=== PATIENT | female | born 1995 ===

== ENCOUNTER 2019-06-22 11:17 | Inpatient (IN) | payer BC, OTHER ==
[2019-06-22 12:10] VITALS: BMI 31.6
[2019-06-22] MEDS ORDERED: hydrALAZINE 20 MG/ML VIAL SLOW IVP PRN ×2 (12:24→13:56)
--- NOTE | 2019-06-22 12:42 | PDOC.FPROB ---
FMR OB H&P: HPI - History of Present Illness Chief Complaint: elevated BP Indentification: 24 y/o @ 38.1 WGA History of Present Illness: Patient presents from Dr. Nunez's office for elevated BP in 140s/80s in the office. The patient denies H/A, vision changes, SOB, RUQ pain, edema. She denies ctx, LOF, VB, d/c. Endorses movement Primary Care Physician: Dr. Nunez FMR OB H&P: Current - Care : 1 Para: 0 Gestational age: 38.1 FMR OB H&P: History - Past Medical History PMH: Denies - OB History OB History: G1 - Surgical History Sx History: Denies - Social History Social History: Denies tobacco, EtOH, drug use - Family History Family History: Father - HTN FMR OB H&P: Medications - Current Home Medications: Medication Instructions Recorded Confirmed Type Pnv No.103/Folic/Om3s/Fish Oil 1 chw PO DAILY 06/22/19 06/22/19 History [ Gummies] Allergies/Adverse Reactions: Allergies Allergy/AdvReac Type Severity Reaction Status Date / Time No Known Allergies Allergy Verified 06/22/19 12:00 FMR OB H&P: ROS - Review of Systems General: denies: fever/chills, weight/appetite/sleep changes Eyes: denies: vision changes, scotomas ENT: denies: nasal congestion, rhinorrhea Cardiovascular: denies: chest pain, edema Respiratory: denies: cough, shortness of breath Gastrointestinal: denies: abdominal pain, nausea, vomiting Genitourinary (Female): denies: dysuria, vaginal discharge, vaginal bleeding, contractions Musculoskeletal: denies: pain, swelling, arthritis/arthralgias Neurologic: denies: numbness, seizures Integumentary: denies: itching, rash Hematologic/Lymphatic: denies: prolonged or excessive bleeding, enlarged lymph nodes Psychological: denies: depression, anxiety FMR OB H&P: Vital Signs - Maternal Vital signs: Vital Signs - First Documented Temp Pulse Resp BP Pulse Ox 98.3 F 78 16 132/81 97 06/22/19 11:57 06/22/19 11:57 06/22/19 11:57 06/22/19 11:57 06/22/19 11:57 - Heart Tones Baseline: 130 Variability: moderate Acceleration: present Deceleration: absent Category: category 1 [place] contractions every: none FMR OB H&P: Physical Exam - Physical Exam General: NAD, awake, alert and oriented HEENT: normocephalic and atraumatic, MMM, conjunctiva clear, grossly normal vision, grossly normal hearing Neck: supple, no LAD Heart: RRR, pulses present, no edema General: no respiratory distress, good air movement, no wheezing Abdomen: soft, gravid Musculoskeletal: normal gait and station, pulses present Neurological: cranial nerves II through XII intact, no tremor, no focal deficit Skin: good tugor, capillary refill <2 seconds Lymphatic: no unusual bruising or bleeding, no purpura Psychiatric: intact recent and remote memory, good judgement and insight FMR OB H&P: A/P - Problem List (1) Elevated blood pressure reading without diagnosis of hypertension Current Visit: Yes Status: Acute Code(s): R03.0 - ELEVATED BLOOD-PRESSURE READING, W/O DIAGNOSIS OF HTN (2) Term Current Visit: Yes Status: Acute Code(s): Z34.90 - ENCNTR FOR SUPRVSN OF NORMAL , UNSP, UNSP TRIMESTER Assessment and Plan: Jm - will begin cytotec induction this pm. Nunez to deliver. discussed with her. Disposition: 1. Elevated BP in without dx of HTN Pt with BP's in 140s/80s in office and now with BP's 132/81, 136/82, 140/83, 139 /85. She is asymptomatic. -Will continue to monitor BP's -CBC, CMP, urine prot:cr ratio -If continues to be elevated or abnormal lab values then will discuss likely induction with Dr. Nunez 2. Term - monitoring Dispo: Pending lab results and BP's Discussion: Date/Time: 06/22/19 1240 This H&P was discussed with Dr. Oneal who agrees with the above documentation and plan. Signature: Viki Currie MD, PGY-3
[2019-06-22 13:03] LABS: Creatinine, Urine 105.61 mg/dL (47-110)
[2019-06-22 13:05] LABS: #Eosinphils 0.1 thou/uL (0.0-0.7); #Lymphocytes 1.3 thou/uL (1.20-3.40); #Neutrophils 6.6 thou/uL (1.40-6.50); %Basophils 0.2 % (0.0-1.0); %Eosinophils 0.8 % (0.0-10.0); %Lymphocytes 14.1 % (21.0-51.0); %Monocytes 10.9 % (0.0-10.0); %Neutrophils 73.9 % (42.0-75.0); Hemoglobin 11.8 g/dL (12.0-16.0); Mean Corpuscular HGB CONC 34.1 g/dL (32.0-36.0); Mean Corpuscular Hemoglobin 28.9 pg (27.0-31.0); Mean Corpuscular Volume 84.6 fL (78.0-98.0); Mean Platelet Volume 9.6 fL (7.4-10.4); Platelet Count 253 thou/uL (130-400); RBC Distribution Width 11.3 % (11.5-14.5); Red Blood Cell (RBC) Count 4.08 mill/uL (4.20-5.40)
[2019-06-22 13:24] LABS: ALT (SGPT) 14 U/L (8-55); AST (SGOT) 11 U/L (5-34); Albumin 3.5 g/dL (3.5-5.0); Alkaline Phosphatase 164 U/L (40-110); Anion Gap 13 mmol/L (10-20); BUN (Urea Nitrogen) 8 mg/dL (7.0-18.7); Bilirubin, Total Less than 0.2 mg/dL (0.2-1.2); Calc. Creatinine Clearance 179 mL/min (70-130); Calcium 9.2 mg/dL (7.8-10.44); Carbon Dioxide 19 mmol/L (22-29); Chloride 107 mmol/L (98-107); Estimated GFR-MDRD Greater than 90; Globulin 2.9 g/dL (2.4-3.5); Glucose 79 mg/dL (70-105); Potassium 3.9 mmol/L (3.5-5.1); Protein, Total 6.4 g/dL (6.0-8.3); Sodium 135 mmol/L (136-145)
[2019-06-22] MEDS ORDERED: HYDROcodone/Acetaminophen 5/325 mg Tablet PO PRN ×2 (13:56)
[2019-06-22] MEDS ORDERED: Lidocaine 1% (PF) 30 ML VIAL SC PRN (13:56)
[2019-06-22] MEDS ORDERED: Promethazine HCl 25 MG/ML VIAL IM PRN ×2 (13:56→19:09)
[2019-06-22] MEDS ORDERED: Ondansetron PF 4 MG/2 ML Vial IVP PRN ×2 (13:56→19:09)
[2019-06-22] MEDS ORDERED: Butorphanol Tartrate 1 MG/ML VIAL SLOW IVP PRN (13:56)
[2019-06-22] MEDS ORDERED: NS / Oxytocin 40 units/1000ml 1,000 ML IV PRN (13:56)
[2019-06-22] MEDS ORDERED: Ibuprofen 800 MG TAB PO PRN (13:56)
[2019-06-22] MEDS ORDERED: NS w/ Oxytocin 10 units 500 ML IV SCH ×2 (14:00)
[2019-06-22 14:51] LABS: Hep B Surf Ag Non-Reactive S/CO (NonReactive)
[2019-06-22] MEDS: Lactated Ringer's 1,000 ML IV SCH ×2 (15:15→23:15)
[2019-06-22] MEDS: Misoprostol 100 MCG TAB VAG SCH ×2 (15:16→19:06)
[2019-06-22] MEDS ORDERED: Fentanyl 4 mcg/Bup 0.1% Cadd 100 ML ONE (18:19)
[2019-06-22 18:42] LABS: Syphilis Antibody Nonreactive (Nonreactive); Syphilis Antibody Index 0.02 S/CO (<1.00 Non-Reactive)
[2019-06-22] MEDS ORDERED: EPHEDRINE 25 MG/5 ML SYRINGE SLOW IVP PRN (19:09)
[2019-06-22] MEDS ORDERED: Lactated Ringer's 500 ML IV PRN (19:09)
[2019-06-22] MEDS ORDERED: Acetaminophen 325 MG TAB PO PRN (19:09)
[2019-06-22] MEDS ORDERED: diphenhydrAMINE 50 MG/ML VIAL IVP PRN (19:09)
[2019-06-22] MEDS ORDERED: Naloxone HCl 0.4 mg/ml Vial IVP PRN ×2 (19:09)
[2019-06-22] MEDS ORDERED: Communication Order-Pharmacy FS SCH (19:15)
[2019-06-23] MEDS ORDERED: Fentanyl 4 mcg/Bup 0.1% Cadd 100 ML ONE ×3 (02:08→15:33)
[2019-06-23] MEDS: Lactated Ringer's 1,000 ML IV SCH (05:41)
--- NOTE | 2019-06-23 08:57 | PDOC.LDPN ---
Labor & Delivery Progress Note - Subjective Subjective: comfortable - Objective Vital signs reviewed and normal: yes General: resting Dilation: 4 Effacement: 50% Station: -1 FHT: category 1 [place] contractions every: 2 AROM: clear fluid IUPC placed: yes - Assessment (1) 38 weeks gestation of Code(s): Z3A.38 - 38 WEEKS GESTATION OF Current Visit: Yes Status : Acute Plan: continue plan of care, labor augmentation -: A/P: IOL for GHTN, AROM for active management of labor, IUPC placed. FHT reassuring at this time and BP WNL.
[2019-06-23] MEDS: Fentanyl 4 mcg/Bupivacaine 0.1% Cassette 100 ML EPIDURAL SCH ×2 (08:59→15:39)
--- NOTE | 2019-06-23 16:54 | PDOC.OPDEL ---
OB Operative/Delivery Note Delivery Dr/Surgeon: Enrique Pre-Delivery Diagnosis: medically indicated induction (GHTN) Procedure/Post Delivery Dx: spontaneous vaginal delivery Weeks gestation: 38 - Findings A Sex: male - Additional Findings/Plan Placenta delivered: spontaneous Repaired Obstetrical Laceration: 2nd degree Estimated blood loss: 350ml Post delivery plan: routine recovery
[2019-06-23] MEDS ORDERED: HYDROcodone/Acetaminophen 5/325 mg Tablet PO PRN ×2 (18:22)
[2019-06-23] MEDS ORDERED: diphenhydrAMINE 25 MG CAP PO PRN (18:22)
[2019-06-23] MEDS ORDERED: Benzocaine-Menthol 82.5 ML CAN TOP PRN (18:22)
[2019-06-23] MEDS ORDERED: Lanolin Ointment 7 GM TUBE TOP PRN (18:22)
[2019-06-23] MEDS ORDERED: Ondansetron PF 4 MG/2 ML Vial IVP PRN (18:22)
[2019-06-23] MEDS ORDERED: NS / Oxytocin 40 units/1000ml 1,000 ML IV SCH (18:22)
[2019-06-23] MEDS ORDERED: Milk Of Magnesia 30 ML UDCUP PO PRN (18:22)
[2019-06-23] MEDS ORDERED: Preparation H Ointment 28 GM TUBE PR PRN (18:22)
[2019-06-23] MEDS ORDERED: hydrALAZINE 20 MG/ML VIAL SLOW IVP PRN (18:22)
[2019-06-23] MEDS ORDERED: Bisacodyl 10 MG SUPP PR PRN (18:22)
[2019-06-23] MEDS ORDERED: Ferrous Sulfate 325 MG TAB PO SCH (18:45)
[2019-06-23] MEDS: Docusate Calcium (SURFAK) 240 MG CAP PO SCH (19:41)
[2019-06-23] MEDS: Ibuprofen 800 MG TAB PO SCH (19:41)
[2019-06-24] MEDS: Ibuprofen 800 MG TAB PO SCH ×3 (05:59→20:54)
[2019-06-24 06:00] LABS: Hemoglobin 9.1 g/dL (12.0-16.0)
--- NOTE | 2019-06-24 07:06 | PDOC.PP ---
Post Progress Note Post Day #: 1 Subjective: No concerns. Working on breast feeding. Vital Signs (12 hours) Temp Pulse Resp BP Pulse Ox 06/24/19 00:20 98.3 F 76 18 129/68 06/23/19 20:30 98.2 F 75 18 131/70 06/23/19 19:25 99 06/23/19 19:15 98.2 F 74 18 125/65 99 Weight Weight 173 lb Result Diagrams: 06/24/19 05:34 06/22/19 12:48 Additional Labs: Post Labs Blood Type A POSITIVE 06/22/19 15:30 Hep Bs Antigen Non-Reactive S/CO (NonReactive) 06/22/19 12:47 - Assessment/Plan Primip[place]. Doing well. Working on . Most likely discharge in AM. consult ordered.
[2019-06-24] MEDS: Ferrous Sulfate 325 MG TAB PO SCH ×2 (07:55→16:44)
[2019-06-24] MEDS: Prenatal Vitamin 1 TAB PO SCH (07:56)
[2019-06-24] MEDS: Docusate Calcium (SURFAK) 240 MG CAP PO SCH ×2 (07:56→20:54)
[2019-06-24] MEDS ORDERED: Adacel (T-DAP) 0.5 ML SYRINGE IM ONE (09:00)
[2019-06-24] MEDS: Misoprostol 100 MCG TAB VAG SCH (17:16)
[2019-06-24] MEDS: Lactated Ringer's 1,000 ML IV SCH (17:17)
[2019-06-25] MEDS: Ibuprofen 800 MG TAB PO SCH (05:53)
[2019-06-25] MEDS: Prenatal Vitamin 1 TAB PO SCH (07:44)
[2019-06-25] MEDS: Ferrous Sulfate 325 MG TAB PO SCH (07:44)
[2019-06-25] MEDS: Docusate Calcium (SURFAK) 240 MG CAP PO SCH (07:44)
[2019-06-25 08:26] VITALS: BP 140/67; TEMP 98.2
== END 2019-06-25 11:45 | disposition home or self-care (01) | DRG 807 ==
LOC: L&D/OP 11:17 → L&D 19:32 → 3SW 06-23 19:24
PROVIDERS: ADMIT Obstetrics & Gynecology; ATTEND Obstetrics & Gynecology
PROC: 10E0XZZ Delivery of Products of Conception, External Approach (ICD-10-PCS; principal; 2019-06-23)
PROC: 0KQM0ZZ Repair Perineum Muscle, Open Approach (ICD-10-PCS; 2019-06-23)
DX: O13.4 Gestational [pregnancy-induced] hypertension without significant proteinuria, complicating childbirth (principal); Z37.0 Single live birth; Z3A.38 38 weeks gestation of pregnancy; O70.1 Second degree perineal laceration during delivery
CPT/HCPCS: 36415; 51702; 80053; 82570; 84156; 85014; 85018; 85025; 86780; 86850; 86900; 86901; 87340; 99285; J1200; J2590